=== PATIENT | female | born 1985 | race Caucasian/White ===

== ENCOUNTER 2017-10-02 10:16 | Outpatient (CLI) | payer MEDICAID | END 2017-10-02 12:41 | disposition home or self-care (01) | LOC: OBT 10:16 → L-D 10:16 → OBT 12:41 | DX: O62.9 Abnormality of forces of labor, unspecified (principal); O34.219 Maternal care for unspecified type scar from previous cesarean delivery; Z3A.37 37 weeks gestation of pregnancy | CPT/HCPCS: Z7500 ==

== ENCOUNTER 2017-10-16 15:30 | Inpatient (IN) | payer MEDICAID ==
[2017-10-16] MEDS ORDERED: OXYTOCIN 30 UNITS/LR 500 ML IV (16:30)
[2017-10-16] MEDS ORDERED: METHYLERGONOVINE 0.2 MG INJ IM (16:30)
[2017-10-16] MEDS ORDERED: BUTORPHANOL 2 MG INJ IV ×2 (16:30)
[2017-10-16] MEDS ORDERED: CARBOPROST 250 MCG INJ IM (16:30)
[2017-10-16] MEDS ORDERED: MISOPROSTOL 200 MCG TAB PR (16:30)
[2017-10-16] MEDS: LACTATED RINGER'S 1,000 ML IV (16:35)
[2017-10-16 17:09] LABS: ADD MAN DIFF? NO
[2017-10-16 17:13] LABS: WHITE BLOOD COUNT 6.9 10^3/ul (4.8-10.8)
[2017-10-16 17:13] LABS: BASOPHILS % 0.4 % (0.0-2.0); EOSINOPHILS % 0.4 % (0.0-7.0); HEMATOCRIT 34.2 % (37.0-47.0); HEMOGLOBIN 11.7 g/dl (12.0-16.0); LYMPHOCYTES # 1.2 10^3/ul (0.8-2.9); LYMPHOCYTES % 17.1 % (15.0-51.0); MEAN CORPUSCULAR HEMOGLOBIN 32.8 pg (29.0-33.0); MEAN CORPUSCULAR HGB CONC 34.2 g/dl (32.0-37.0); MEAN CORPUSCULAR VOLUME 95.8 fl (82.0-101.0); MEAN PLATELET VOLUME 12.1 fl (7.4-10.4); MONOCYTE # 0.5 10^3/ul (0.3-0.9); MONOCYTES % 7.7 % (0.0-11.0); NEUTROPHIL # 5.1 10^3/ul (1.6-7.5); PLATELET COUNT 191 10^3/UL (140-415); RED BLOOD COUNT 3.57 10^6/ul (4.20-5.40)
[2017-10-16 17:27] LABS: INR 0.85; PROTIME 11.7 Sec (11.9-14.9); PT RATIO 0.9
[2017-10-16 17:28] LABS: PARTIAL THROMBOPLASTIN TIME 30.6 Sec (25.0-35.0)
[2017-10-16] MEDS ORDERED: OXYCODONE/ASPIRIN (4.88/325) TAB PO (21:30)
[2017-10-16] MEDS ORDERED: IBUPROFEN 600 MG TAB PO (21:30)
[2017-10-16] MEDS: LIDOCAINE 1% (MPF) 30 ML INJ INJ (22:14)
[2017-10-16] MEDS: OXYTOCIN 30 UNITS/LR 500 ML IV ×2 (22:15→23:01)
[2017-10-16] MEDS: LACTATED RINGER'S 1,000 ML IV* (23:40)
[2017-10-17] MEDS ORDERED: ACETAMINOPHEN 325 MG TAB PO
[2017-10-17] MEDS ORDERED: OXYTOCIN 30 UNITS/LR 500 ML IV
[2017-10-17] MEDS ORDERED: METHYLERGONOVINE 0.2 MG INJ IM
[2017-10-17] MEDS ORDERED: MISOPROSTOL 200 MCG TAB PR
[2017-10-17] MEDS ORDERED: CARBOPROST 250 MCG INJ IM
[2017-10-17] MEDS ORDERED: DIBUCAINE 1% 30 GM OINT PR
[2017-10-17] MEDS ORDERED: HYDROCODONE/APAP (5/325) TAB PO
[2017-10-17] MEDS: LANOLIN 7 GM TUBE TOP (01:02)
[2017-10-17] MEDS: IBUPROFEN 600 MG TAB PO ×5 (01:02→23:48)
[2017-10-17] MEDS: WITCH HAZEL/GLYCERIN PAD PR (01:03)
[2017-10-17] MEDS: BENZOCAINE 20% 56 ML SPRAY TOP (01:03)
[2017-10-17] MEDS: LACTATED RINGER'S 1,000 ML IV* (07:40)
[2017-10-17] MEDS: SENNA/DOCUSATE NA (8.6MG/50MG) TAB PO ×2 (09:07→21:19)
[2017-10-17 11:16] LABS: ADD MAN DIFF? NO
[2017-10-17 11:57] LABS: BASOPHILS % 0.3 % (0.0-2.0); EOSINOPHILS % 0.2 % (0.0-7.0); HEMATOCRIT 33.7 % (37.0-47.0); HEMOGLOBIN 11.2 g/dl (12.0-16.0); LYMPHOCYTES # 1.2 10^3/ul (0.8-2.9); LYMPHOCYTES % 11.9 % (15.0-51.0); MEAN CORPUSCULAR HEMOGLOBIN 32.6 pg (29.0-33.0); MEAN CORPUSCULAR HGB CONC 33.2 g/dl (32.0-37.0); MEAN PLATELET VOLUME 12.4 fl (7.4-10.4); MONOCYTE # 0.5 10^3/ul (0.3-0.9); MONOCYTES % 5.3 % (0.0-11.0); NEUTROPHIL # 8.2 10^3/ul (1.6-7.5); NEUTROPHILS % 81.9 % (39.0-77.0); PLATELET COUNT 172 10^3/UL (140-415); RED BLOOD COUNT 3.44 10^6/ul (4.20-5.40)
[2017-10-17 15:04] LABS: RAPID PLASMA REAGIN NONREACTIVE (NR)
[2017-10-17] MEDS: INFLUENZA VIRUS VACCINE 0.5 ML (DISPENSING) IM* (22:40)
[2017-10-18] MEDS: IBUPROFEN 600 MG TAB PO ×2 (05:42→12:45)
[2017-10-18] MEDS: LACTATED RINGER'S 1,000 ML IV* (07:40)
[2017-10-18] MEDS: SENNA/DOCUSATE NA (8.6MG/50MG) TAB PO (10:09)
[2017-10-18] MEDS: DIPHTH/TET/ACEL PERTUSS (ADULT) 0.5 ML VIAL IM* (12:48)
[2017-10-19] MEDS ORDERED: INFLUENZA VIRUS VACCINE 0.5 ML (DISPENSING) IM* (09:00)
== END 2017-10-18 18:03 | disposition home or self-care (01) | DRG 775 ==
LOC: OBT 15:30 → L-D 15:32 → OBT 16:05 → L-D 16:05 → PP1 23:45
PROVIDERS: Obstetrics & Gynecology
PROC: 10E0XZZ Delivery of Products of Conception, External Approach (ICD-10-PCS; principal; 2017-10-16)
PROC: 0HQ9XZZ Repair Perineum Skin, External Approach (ICD-10-PCS; 2017-10-16)
DX: O70.0 First degree perineal laceration during delivery (principal); O69.81X0 Labor and delivery complicated by cord around neck, without compression, not applicable or unspecified; Z3A.38 38 weeks gestation of pregnancy; Z37.0 Single live birth
CPT/HCPCS: 76815; 85025; 85610; 85730; 86592; 86900; 86901; 88307; 90686; 90715